=== PATIENT | male | born 1995 | race Two or more races ===

== ENCOUNTER 2022-03-04 21:28 | Emergency (ER) | payer MEDICAID, OTHER ==
[~2022-03-04] VITALS: Ht 182.9 cm; Wt 86.2 kg
--- NOTE | 2022-03-04 21:45 | NUR ---
TO ER BED 14. BIBRA [employer] AND [employer] FOR BIZARRE BEHAVIOR. ADMITTED ON USING "EVERY KIND" OF DRUG INCLUDING METH, WEED, PCP. PT PLACED ON A 5150 HOLD BY [employer]. BREATHING IS EVEN AND UNLABORED. CONNECTED TO MONITOR. BELONGINGS OBTAINED AND SECURED IN LOCKER. 1:1 SITTER.
--- NOTE | 2022-03-04 22:52 | NUR ---
COVID SWAB DONE AND SENT TO LAB.
[2022-03-04 23:21] LABS: BASOPHILS % (AUTO) 0.3 % (0.0-2.0); HEMATOCRIT 35 % (39-51); HEMOGLOBIN 11.9 g/dL (13.5-17.5); LYMPHOCYTES # (AUTO) 2.5 K/uL (0.8-4.8); LYMPHOCYTES % (AUTO) 22.9 % (20.0-44.0); MEAN CORPUSCULAR HGB CONC 34 g/dl (31.0-36.0); MEAN CORPUSCULAR VOLUME 86 fL (80-96); MONOCYTES # (AUTO) 0.9 K/uL (0.1-1.30); MONOCYTES % (AUTO) 8.4 % (2.0-12.0); NEUTROPHILS # (AUTO) 7.2 K/uL (1.8-8.9); NEUTROPHILS % (AUTO) 67.4 % (43.0-81.0); PLATELET COUNT (AUTO) 257 K/uL (150-450); RED BLOOD CELL COUNT(AUTO) 4.07 MIL/uL (4.5-6.0); WHITE BLOOD COUNT (AUTO) 10.7 K/uL (4.3-11.0)
[2022-03-04 23:33] LABS: ACETAMINOPHEN 6 ug/ml (10-30); ALANINE AMINOTRANSFERASE 26 U/L (12-78); ALBUMIN 3.5 g/dL (3.4-5.0); ALKALINE PHOSPHATASE 93 U/L (46-116); ASPARTATE AMINOTRANSFERASE 18 U/L (15-37); BILIRUBIN,DIRECT 0.1 mg/dL (0.0-0.2); BILIRUBIN,TOTAL 0.2 mg/dL (0.2-1.0); CALCIUM, SERUM 8.4 mg/dL (8.5-10.1); CARBON DIOXIDE 30 mmol/L (21-32); CHLORIDE 105 mmol/L (98-107); CREATININE 1.2 mg/dL (0.6-1.3); GLUCOSE 114 mg/dL (74-106); POTASSIUM 3.1 mmol/L (3.5-5.1); SODIUM SERUM 141 mmol/L (136-145); TOTAL PROTEIN, SERUM 6.8 g/dL (6.4-8.2); UREA NITROGEN, BLOOD 13 mg/dL (7-18)
[2022-03-04 23:35] LABS: ALCOHOL, BLOOD < 3 mg/dL (0-0)
[2022-03-04] MEDS ORDERED: LIDOCAINE 2% JEL UROJET 10 ML MM ONE (23:36)
--- NOTE | 2022-03-04 23:44 | NUR ---
URINE COLLECTED AND SENT TO LAB.
[2022-03-05 00:14] LABS: BILIRUBIN,URINE NEGATIVE (NEGATIVE); COLOR,URINE YELLOW (YELLOW); LEUKOCYTE ESTERASE ,URINE NEGATIVE (NEGATIVE); NITRITE, URINE NEGATIVE (NEGATIVE); PH,URINE 5.5 (5.0-8.0); PROTEIN,URINE TRACE mg/dl (NEGATIVE); UGLUCOSE NEGATIVE (NEGATIVE); UROBILINOGEN,URINE 0.2 EU/dL (0.2)
--- NOTE | 2022-03-05 04:27 | NUR ---
Patient is resting comfortably in bed with eyes closed. Easily aroused. VSS
--- NOTE | 2022-03-05 08:48 | NUR ---
PT SLEEPING AT THIS TIME, EYES CLOSED, RESPONSIVE TO VERBAL AND TACTILE SENSATIONS, NOT IN ACUTE DISTRESS.
[2022-03-05] MEDS ORDERED: HALOPERIDOL LACTATE INJ 5 MG/ML VIAL IM ONE (12:00)
[2022-03-05] MEDS ORDERED: diphenhydrAMINE HCL 50 MG/ML VIAL IM ONE (12:00)
[2022-03-05] MEDS ORDERED: HALOPERIDOL LACTATE INJ 5 MG/ML VIAL ONE (12:03)
[2022-03-05] MEDS ORDERED: diphenhydrAMINE HCL 50 MG/ML VIAL ONE (12:03)
--- NOTE | 2022-03-05 21:58 | NUR ---
PROVIDED PT WITH FOOD AND DRINK, WILL CONTINUE TO MONITOR
--- NOTE | 2022-03-06 00:05 | NUR ---
PT IS ASLEEP AND EASILY AROUSABLE, CONNECTED TO MONITOR. VSS. WILL CONTINUE TO MONITOR
[2022-03-06] MEDS ORDERED: OLANZAPINE 10 MG VIAL IM ONE ×2 (00:23→00:30)
--- NOTE | 2022-03-06 03:06 | NUR ---
PT RESTING COMFORTABLY IN BED. NO CHANGES. WILL CONTINUE TO MONITOR.
--- NOTE | 2022-03-06 07:58 | NUR ---
PATIENT RESTING IN BED, EASILY AROUSABLE.
--- NOTE | 2022-03-06 08:00 | NUR ---
THE PATIENT IS RECEIVED IN ER BED #14. THE PATIENT IS ALERT AND ORIENTED X3. DENIES PAIN. IN ROOM AIR AND DENIES SOB. RESPIRATION REGULAR AND UNLABORED. THE PATIENT IS OFFERED BREAKFAST BUT HE REFUSED. WILL CONTINUE TO MONITOR THE PATIENT. SITTER AT THE BEDSIDE.
--- NOTE | 2022-03-06 08:57 | NUR ---
VERO GRAMAJO AT THE BEDSIDE FOR EVAL. VERO GRAMAJO TEL [phone]
--- NOTE | 2022-03-06 11:43 | NUR ---
CLINICALS FAXED TO [facility] INTAKE
--- NOTE | 2022-03-06 12:35 | NUR ---
LISA called [facility] TEL:[phone] for update regarding psych admission. Per Intake the assembly line supervisor is reviewing clinicals. Per [facility] they will call back with update.
--- NOTE | 2022-03-06 12:53 | NUR ---
MOTHER [phone]
--- NOTE | 2022-03-06 13:22 | NUR ---
CALLED MOTHER AND ASKED TO [employer] ROLLER OPERATOR SON BUT SHE STATES THAT SHE IS AT WORK AND CANNOT PICK HIM UP
--- NOTE | 2022-03-06 13:44 | NUR ---
The patient is alert and oriented x4. In room air and denies SOB. Respiration regular and unlabored. Denies pain. Denies SI/HI. Denies having auditory/visual hallucinations. Patient discharged to home in stable condition. Written and verbal after care instructions given. Patient verbalizes understanding of instruction.
[2022-03-06 14:09] VITALS: BP 121/67
== END 2022-03-06 13:41 | disposition home or self-care (01) ==
LOC: ER 21:30 → EDBD 21:30 → ER 03-06 13:41
DX: F16.159 Hallucinogen abuse with hallucinogen-induced psychotic disorder, unspecified (principal); F19.129 Other psychoactive substance abuse with intoxication, unspecified; R00.0 Tachycardia, unspecified; R03.0 Elevated blood-pressure reading, without diagnosis of hypertension; Z20.822 Contact with and (suspected) exposure to COVID-19
CPT/HCPCS: 36415; 80048; 80076; 80143; 80307; 80320; 81003; 85025; 87426; 96372 ×3; 99285; C9803; J1200; J1630; J3490 ×2; G0480